=== PATIENT | female | born 1975 | race Caucasian/White ===

== ENCOUNTER 2024-09-17 23:07 | Inpatient (IN) | payer MEDICAID, OTHER ==
[~2024-09-17] VITALS: Ht 162.6 cm; Wt 77.0 kg
[2024-09-18] MEDS: acetaminophen 325mg tablet PO ONE (01:03)
[2024-09-18] MEDS: CefTRIAXone 2gm/D5W 50ml BAG 50 ML IV ONE (03:12)
[2024-09-18] MEDS: normal saline 1000ML IV soln IV ONE (03:12)
[2024-09-18] MEDS: azithromycin 250mg tablet PO ONE (03:12)
[2024-09-18 03:23] LABS: BASOPHILS # (AUTO) 0.1 X10'3 (0-0.2); BASOPHILS % (AUTO) 1.1 % (0-1); EOSINOPHILS # (AUTO) 0.3 X10'3 (0-0.9); EOSINOPHILS % (AUTO) 3.4 % (0-6); HEMATOCRIT 38.7 % (35.0-45.0); HEMOGLOBIN 12.6 g/dl (12.0-16.0); LYMPHOCYTES # (AUTO) 1.5 X10'3 (1.1-4.8); LYMPHOCYTES % (AUTO) 15.4 % (21-51); MEAN CORPUSCULAR HEMOGLOBIN 30.1 PG (27.0-31.0); MEAN CORPUSCULAR HGB CONC 32.6 g/dL (33.0-36.5); MEAN CORPUSCULAR VOLUME 92.3 FL (78-98); MEAN PLATELET VOLUME 8.3 FL (7.4-10.4); MONOCYTES # (AUTO) 0.9 X10'3 (0-0.9); MONOCYTES % (AUTO) 9.3 % (2-12); NEUTROPHILS # (AUTO) 6.9 X10'3 (1.8-7.7); NEUTROPHILS % (AUTO) 70.8 % (42-75); PLATELET COUNT 351 X10'3 (140-440); RED BLOOD COUNT 4.19 X10'6 (4.20-5.60); RED CELL DISTRIBUTION WIDTH 13.9 % (11.5-14.5); WHITE BLOOD COUNT 9.7 X10'3 (4.5-11.0)
[2024-09-18] MEDS: vancomycin/NS 1 GM ADD-VANTAGE 250 ML IV ONE (04:36)
[2024-09-18] MEDS ORDERED: magnesium hydroxide 30ml (MOM) UD suspension PO PRN (06:05)
[2024-09-18] MEDS ORDERED: magnesium sulf-water 2g/50mL 50 ML IV PRN (06:05)
[2024-09-18] MEDS ORDERED: morphine 2 MG/ML inj. syringe IV PRN ×2 (06:05)
[2024-09-18] MEDS ORDERED: mag hydrox/Alum hydrox/simeth 30ml oral suspension PO PRN (06:05)
[2024-09-18] MEDS ORDERED: potassium Cl 40MEQ/1/2NS 520ml 520 ML IV PRN (06:05)
[2024-09-18] MEDS ORDERED: potassium Cl 20 mEq SR tablet PO PRN ×2 (06:05)
[2024-09-18] MEDS ORDERED: HYDROmorphone inj. 0.5 MG/0.5 ML DISP.SYRIN IV PRN (06:05)
[2024-09-18] MEDS ORDERED: magnesium Cl slow-release 64mg tablet PO PRN (06:05)
[2024-09-18] MEDS ORDERED: ondansetron/PF 4mg/2ml inj IV PRN (06:05)
[2024-09-18] MEDS ORDERED: magnesium sulf-water 4G/100mL 100 ML IV PRN (06:05)
[2024-09-18] MEDS ORDERED: acetaminophen 325mg tablet PO PRN (06:05)
[2024-09-18] MEDS ORDERED: rabies vaccine (PCEC)/PF 2.5 unit kit IMVAC ONE (06:15)
[2024-09-18 06:48] LABS: ALANINE AMINOTRANSFERASE 14 U/L (12-78); ALBUMIN 2.7 G/DL (3.4-5.0); ALBUMIN/GLOBULIN RATIO 0.8 (1.1-1.5); ALKALINE PHOSPHATASE 122 IU/L (46-116); ANION GAP 7 (8-16); ASPARTATE AMINO TRANSFERASE 10 U/L (10-37); BILIRUBIN,TOTAL 0.3 MG/DL (0.1-1.0); BLOOD UREA NITROGEN 22 MG/DL (7-18); BUN/CREATININE RATIO 33.8 (10.0-20.0); CALCIUM 7.8 MG/DL (8.5-10.1); CHLORIDE 110 MMOL/L (99-107); CREATININE 0.65 MG/DL (0.40-0.90); GLUCOSE 98 MG/DL (70-104); POTASSIUM 4.1 MMOL/L (3.5-5.1); SODIUM 143 MMOL/L (135-145); TOTAL CARBON DIOXIDE 25.6 MMOL/L (24-32); TOTAL PROTEIN 6.2 G/DL (6.4-8.2); eCRCL 89 ML/MIN; eGFR > 90 ML/MIN
[2024-09-18 06:49] LABS: BILIRUBIN,DIRECT 0.1 MG/DL (0-0.3); C-REACTIVE PROTEIN 0.14 MG/DL (0.0-0.5); MAGNESIUM 1.6 MG/DL (1.5-2.4)
[2024-09-18] MEDS: normal saline 1000ml 1,000 ML IV SCH (07:04)
[2024-09-18] MEDS: rabies immune globulin/PF 150 unit/ml inj IMVAC STA (07:10)
[2024-09-18] MEDS: K and/or MAG REPLACEMENT MC SCH (08:00)
[2024-09-18 08:55] LABS: SYPHILIS SCREENING TEST POC NEGATIVE (Negative)
[2024-09-18] MEDS: CefTRIAXone/D5W-Rocephin 1gm 50 ML IV SCH (11:13)
[2024-09-18] MEDS: clindamycin 300mg/D5W 50mL 50 ML IV SCH (11:19)
[2024-09-18] MEDS: heparin, porcine 5000 units/ml vial SQ SCH (11:19)
[2024-09-18] MEDS: docusate sod 100mg capsule PO SCH (11:19)
[2024-09-18 14:22] LABS: URINE HCG NEGATIVE (NEG)
[2024-09-18 15:11] VITALS: RESP 14
[2024-09-18] MEDS ORDERED: iohexol 300mg/ml 100ml inj. ONE (15:25)
[2024-09-18] MEDS ORDERED: NO HOME MEDS (15:30)
[2024-09-18 18:00] VITALS: BP 92/49; PULSE 73; RESP 15; TEMP 96.6; O2SAT 100
[2024-09-18 20:00] VITALS: RESP 15; O2SAT 100
[2024-09-18] MEDS: vancomycin/NS 1 GM ADD-VANTAGE 250 ML IV SCH (20:08)
[2024-09-18 22:00] VITALS: BP 103/63; PULSE 64; RESP 16; TEMP 98.4; O2SAT 98
[2024-09-19] VITALS (7 sets, daily range): BP systolic 99–108; BP diastolic 45–63; PULSE 54–75; RESP 16–18; TEMP 97.8–98.9; O2SAT 97–99
[2024-09-19 05:48] LABS: BASOPHILS % (AUTO) 0.7 % (0-1); EOSINOPHILS # (AUTO) 0.2 X10'3 (0-0.9); EOSINOPHILS % (AUTO) 3.5 % (0-6); HEMATOCRIT 37.1 % (35.0-45.0); HEMOGLOBIN 12.3 g/dl (12.0-16.0); LYMPHOCYTES # (AUTO) 1.8 X10'3 (1.1-4.8); LYMPHOCYTES % (AUTO) 27.7 % (21-51); MEAN CORPUSCULAR HEMOGLOBIN 30.7 PG (27.0-31.0); MEAN CORPUSCULAR HGB CONC 33.1 g/dL (33.0-36.5); MEAN CORPUSCULAR VOLUME 92.5 FL (78-98); MEAN PLATELET VOLUME 8.3 FL (7.4-10.4); MONOCYTES # (AUTO) 0.6 X10'3 (0-0.9); MONOCYTES % (AUTO) 9.4 % (2-12); NEUTROPHILS # (AUTO) 3.7 X10'3 (1.8-7.7); NEUTROPHILS % (AUTO) 58.7 % (42-75); PLATELET COUNT 311 X10'3 (140-440); RED BLOOD COUNT 4.01 X10'6 (4.20-5.60); RED CELL DISTRIBUTION WIDTH 13.4 % (11.5-14.5); WHITE BLOOD COUNT 6.4 X10'3 (4.5-11.0)
[2024-09-19 05:52] LABS: ALANINE AMINOTRANSFERASE 15 U/L (12-78); ALBUMIN 2.8 G/DL (3.4-5.0); ALBUMIN/GLOBULIN RATIO 0.8 (1.1-1.5); ALKALINE PHOSPHATASE 84 IU/L (46-116); ANION GAP 5 (8-16); ASPARTATE AMINO TRANSFERASE 14 U/L (10-37); BILIRUBIN,TOTAL 0.6 MG/DL (0.1-1.0); BLOOD UREA NITROGEN 10 MG/DL (7-18); BUN/CREATININE RATIO 14.9 (10.0-20.0); CALCIUM 8.2 MG/DL (8.5-10.1); CHLORIDE 107 MMOL/L (99-107); CREATININE 0.67 MG/DL (0.40-0.90); GLUCOSE 90 MG/DL (70-104); MAGNESIUM 1.7 MG/DL (1.5-2.4); POTASSIUM 3.9 MMOL/L (3.5-5.1); SODIUM 142 MMOL/L (135-145); TOTAL CARBON DIOXIDE 30.4 MMOL/L (24-32); TOTAL PROTEIN 6.4 G/DL (6.4-8.2); eCRCL 87 ML/MIN; eGFR > 90 ML/MIN
[2024-09-19] MEDS ORDERED: VANCOMYCIN LEVEL IV ONE (12:30)
[2024-09-19] MEDS: FLU VACC TS2024-25(6MOS UP)/PF 45 MCG/0.5 ML SYRINGE IMVAC ONE (14:55)
[2024-09-20 06:03] LABS: BASOPHILS % (AUTO) 0.5 % (0-1); EOSINOPHILS # (AUTO) 0.2 X10'3 (0-0.9); EOSINOPHILS % (AUTO) 2.7 % (0-6); HEMATOCRIT 35.4 % (35.0-45.0); HEMOGLOBIN 11.6 g/dl (12.0-16.0); LYMPHOCYTES # (AUTO) 1.4 X10'3 (1.1-4.8); LYMPHOCYTES % (AUTO) 19.3 % (21-51); MEAN CORPUSCULAR HEMOGLOBIN 30.1 PG (27.0-31.0); MEAN CORPUSCULAR HGB CONC 32.8 g/dL (33.0-36.5); MEAN CORPUSCULAR VOLUME 91.9 FL (78-98); MEAN PLATELET VOLUME 8.3 FL (7.4-10.4); MONOCYTES # (AUTO) 0.7 X10'3 (0-0.9); MONOCYTES % (AUTO) 9.1 % (2-12); NEUTROPHILS % (AUTO) 68.4 % (42-75); PLATELET COUNT 282 X10'3 (140-440); RED BLOOD COUNT 3.85 X10'6 (4.20-5.60); RED CELL DISTRIBUTION WIDTH 13.7 % (11.5-14.5); WHITE BLOOD COUNT 7.4 X10'3 (4.5-11.0)
[2024-09-20 06:22] LABS: ALANINE AMINOTRANSFERASE 14 U/L (12-78); ALBUMIN 2.6 G/DL (3.4-5.0); ALBUMIN/GLOBULIN RATIO 0.8 (1.1-1.5); ALKALINE PHOSPHATASE 75 IU/L (46-116); ANION GAP 6 (8-16); ASPARTATE AMINO TRANSFERASE 13 U/L (10-37); BILIRUBIN,TOTAL 0.5 MG/DL (0.1-1.0); BLOOD UREA NITROGEN 12 MG/DL (7-18); BUN/CREATININE RATIO 18.2 (10.0-20.0); CALCIUM 8.3 MG/DL (8.5-10.1); CHLORIDE 108 MMOL/L (99-107); CREATININE 0.66 MG/DL (0.40-0.90); GLUCOSE 89 MG/DL (70-104); MAGNESIUM 1.7 MG/DL (1.5-2.4); SODIUM 141 MMOL/L (135-145); TOTAL CARBON DIOXIDE 27.2 MMOL/L (24-32); eCRCL 88 ML/MIN; eGFR > 90 ML/MIN
[2024-09-20 06:30] VITALS: BP 107/62; PULSE 58; RESP 16; TEMP 97.9; O2SAT 98
[2024-09-20 08:00] VITALS: RESP 16
[2024-09-20] MEDS ORDERED: PANT40TA54 PO (11:03)
[2024-09-20] MEDS ORDERED: DOXY-224 PO (11:03)
[2024-09-20] MEDS ORDERED: AMOX-580 PO (11:03)
[2024-09-20 11:36] VITALS: RESP 16; O2SAT 98
[2024-09-20 14:00] VITALS: BP 121/71
[2024-09-20] MEDS ORDERED: amox tr/potassium clavulanate 875/125mg TAB PO SCH (17:30)
[2024-09-20] MEDS ORDERED: DOXYCYCLINE 100MG CAPSULE PO SCH (17:30)
[2024-09-21 05:15] LABS: CHLAMYDIA TRACHOMATIS, NAA Negative (Negative)
== END 2024-09-20 15:35 | disposition home or self-care (01) | DRG 603 ==
LOC: ER 23:08 → ED HOLD 09-18 03:56 → EDBEDREQ 09-18 06:43 → SUR 3N 09-18 07:41
PROVIDERS: ADMIT Internal Medicine Critical Care Medicine; ATTEND Nurse Practitioner Family
PROC: BQ2R1ZZ Computerized Tomography (CT Scan) of Right Lower Extremity using Low Osmolar Contrast (ICD-10-PCS; principal; 2024-09-18)
DX: L03.115 Cellulitis of right lower limb (principal); S81.851D Open bite, right lower leg, subsequent encounter; W54.0XXD Bitten by dog, subsequent encounter; Z83.3 Family history of diabetes mellitus; Z87.59 Personal history of other complications of pregnancy, childbirth and the puerperium; Z98.51 Tubal ligation status
CPT/HCPCS: 36415; 71045; 73701; 80048; 80053; 80076; 81025; 83605; 83735; 84145; 85025; 85651; 86140; 87040; 87081; 87491; 90376; 90471; 90686; 93005; 96365; 96367; 99285; A6258; A6446; A6449; G0378; J0696; J1644; J3370; J3490; J7030; Q9967

== ENCOUNTER 2024-12-06 23:28 | Emergency (ER) | payer MEDICAID, OTHER ==
[~2024-12-06] VITALS: Ht 162.6 cm; Wt 90.9 kg
[~2024-12-06 23:28] MED LIST: AMOX-580 PO; DOXY-224 PO; NO HOME MEDS; PANT40TA54 PO
[2024-12-06 23:39] VITALS: BP 128/65; PULSE 72; RESP 16; TEMP 98.1; O2SAT 98
--- NOTE | 2024-12-06 23:50 | Physician Documentation ---
History of Present Illness ~ Chief Complaint: Wound Re-Check Stated Complaint: "INFECTION FROM DOG BIT" Time Seen by MD: 00:01 Primary Medical Doctor: Dr Husain HPI Patient presents today for evaluation of a chronic right lower extremity wound that began as a result of a dog bite. She got bitten by a dog on September 18, almost three months ago, took antibiotics. She states that the wounds never completely healed. They has been gradually getting worse. She has not sought medical attention prior to that. No particular palliating or aggravating factors were elicited with the patient. She brought her brother today to the hospital and decided to check in and seek medical attention as well, hence the reason for today's visit. Does report some pain, did home based wound care only. Denies any fever, chills, denies any other symptoms. Denies any concerns for tobacco, alcohol or illicit substances use Tetanus within 5 years?: No Medication Reconciliation Allergies: Coded Allergies: No Known Allergies (Unverified , 09/17/24) Scheduled Amox Tr/Potassium Clavulanate 875/125 MG (Augmentin 875/125 MG), 1 TAB PO Q12H Doxycycline Hyclate (Doxycycline Hyclate), 100 MG PO Q12H Pantoprazole Sodium (Pantoprazole Sodium), 40 MG PO DAILY Miscellaneous Medications Home Med List (No Home Medications), (Reported) Past Medical History Past Medical History: No Pertinent History Past Surgical History: tubal ligation Patient History: FH: diabetes mellitus FATHER No Family History of: FH: cancer Drug Use: none Lives In: Home Review of Systems ROS 10 point review of systems was performed and unless noted above in HPI is negative for acute process/complaint. Physical Exam Vital Signs: Temperature: 98.1, Heart Rate: 72, Respiratory Rate: 16, BP: 128/65, Pulse Oximetry: 98, Weight: 90.910 Oxygen Flow Rate: 0 Physical Exam Physical examination: GENERAL: Awake, alert, oriented, GCS 15, no apparent distress, non-toxic appearing, answers questions, follows commands appropriately. HEENT: Atraumatic, normocephalic, pupils equal, extraocular muscles intact Active gross movements, sclerae anicteric, mucus membranes moist, no stridor. NECK: Midline, no JVD CARDIOVASCULAR: Good skin perfusion without evidence of pallor, mottling. PULMONARY: Nonlabored, symmetric chest rise, no audible wheezing, no accessory muscle use, no respiratory distress, speaking in full sentences. GASTROINTESTINAL: Not distended. NEUROLOGIC: Lucid with normal mental status. Normal facial symmetry. Moves all extremities symmetrically and with purpose. No truncal ataxia. Speech is fluid without evidence of dysarthria or aphasia, no focal deficits appreciated. EXTREMITIES: Acute deformities Skin: warm, dry PSYCHIATRIC: Normal affect, normal insight, normal concentration. Focused exam: [] Right lower extremity has approximately 10 x 20 cm area of erythema, calor, with some chronic appearing wounds. No active bleeding or purulent discharge. No abscesses. Progress Results/Orders Results/Orders Vital Signs 12/06/24 23:39 Temp 98.1 Pulse 72 Resp 16 B/P (MAP) 128/65 Pulse Ox 98 O2 Flow Rate 0 Medical Decision Making Findings Facility Status: ED Holds, E process The plan was discussed with the patient, who demonstrates clear understanding of the plan and is in agreement with the plan unless otherwise noted in the chart. All questions have been answered, all concerns were addressed unless otherwise documented. I was available throughout their ED stay for frequent reassessment and questions. Differential Diagnoses (considered and possible or likely): [Cellulitis, less likely cellulitis secondary to the dog bite, less likely abscess, clinically not consistent with necrotizing fasciitis, chronic venous stasis ulcer had also been considered with a without superimposed infection] ??Differential Diagnoses (considered and unlikely, not requiring evaluation currently): [Neurovascular baseline and intact] MDM Data Please see [facility] for the following: Independent Historians and external Records Review. Historian: [Patient] Independent Historians: ?[Record review] Medication Management: [Reviewed medication list] Social History and determinants: [Reviewed] Please see the body of the note for the following: Any independent interpretations of ECG, imaging studies. All vitals signs/haemodynamics, ordered tests were independently reviewed and interpreted by myself. Nursing triage complaint and vitals reviewed, additional nursing notes were reviewed as available and I agree unless otherwise noted or documented in contradiction in the chart Vital Signs: Independently reviewed Labs: Independently interpreted Imaging: Independently interpreted Old Medical Records: Independently reviewed, see [facility] for relevant summary and information Pulse Oximetry: [99%] interpreted as [normal on room air] by me Additionally notably showing: [Hemodynamically stable] Tests considered but not ordered include: [Hematologic workup and imaging has been considered but does not appear to be necessary given clinical nature of diagnosis] Social Determinants of Health Impact: Patient was evaluated in [facility], or [facility] [place] to healthcare due to below par ratio of patient to medical providers. [] Comorbid Conditions Impacting Present Evaluation and Care/Treatment: [None reported with the patient] Management Discussions with other Healthcare Providers: [None] Treatment and Disposition Medication Management (Given or considered): [1st dose of antibiotics]. See EMR for details Consideration for Hospitalization/Escalation/Deescalation of Care: Admission for observation has been considered, [however the patient is able to tolerate p.o., their symptoms are controlled, they are able to rely on oral medications, and their chief complaint/diagnosis can be managed on outpatient basis.] ?ED Course:?[I do not think this represents a dog bite related infection, but rather needs to be treat it as a regular cellulitis with a without MRSA. We will initiate is beta lactams with a potential reassessment of the transitioned to Bactrim if no improvement] ?Shared decision making:?[Patient is hemodynamically stable for discharge home with follow with their primary care provider. [ ] Specific and cautious return precautions provided and discussed with full understanding. Any incidental findings were also discussed and follow up recommendations given. [] All questions answered. Patient/family were able to verbalize back return precautions. Patient/family agree to plan. Copies of imaging and laboratory studies were provided.] Code status:?FULL Please see the full Electronic Medical Record for full details of nursing documentation, medications list, other records of complete past medical history and conditions, vital signs, laboratory studies, and any radiologic study interpretations by radiologists. Portions of this note were completed using [employer] dictation software and as a result there may exist minor errors in spelling. I have reviewed elements of past family and social history and agree as included in note. Departure Disposition: HOME / SELF CARE / HOMELESS (So my last person that an) Impression: Primary Impression: Cellulitis of right leg without foot Condition: Improved Referrals: NO PRIMARY CARE PROVIDER (PCP) Prescriptions Amox Tr/Potassium Clavulanate (Augmentin 875-125 Tablet) 1 Each Tablet 1 TAB PO Q12H for 10 Days, #20 TAB Prov: LANI RODRIGUEZ DO 12/07/24 Education Educated: Patient Educated regarding: diagnosis, treatment, prognosis, need for follow up Additional Comment Medical Screen Exam History: This 49-year-old female presents for wound recheck of a dog bite she received to her lower right cesar in August, patient reports it is healing poorly, patient reports she was seen by outpatient wound care however she reports they told her it was healing well and gave her home care instructions though one of the times while doing a bandage change she rib some of the skin off and it is healing poorly now. Patient additionally reports two new wounds to her right upper calf Exam: VITALS: Reviewed and as above. GENERAL: Alert, nontoxic appearing, no apparent distress. RESPIRATORY: No increased work of breathing, no respiratory distress, speaking in full clear sentences SKIN: Dressed wound to the anterior surface of right lower cesar, dressing unable to be removed due to adherence to wound. Two 1 cm open wounds to upper lateral thigh MSE performed in triage and patient returned to ED lobby by nursing staff The note accurately reflects work and decisions made by me.SOURAV Sibley 12/06/24 23:50 Signature Scribe Signature: No scribe Attestation: This note accurately reflects clinical decisions, work performed by myself, DO SANDRA Hines PAUL W FNP Dec 06, 2024 23:50 LANI RODRIGUEZ DO Dec 07, 2024 00:26
[2024-12-07] MEDS ORDERED: AMOX-117 PO (00:25)
[2024-12-07] MEDS: amox tr/potassium clavulanate 875/125mg TAB PO ONE (01:16)
== END 2024-12-07 01:18 | disposition home or self-care (01) ==
LOC: ER 23:29
DX: L03.115 Cellulitis of right lower limb (principal); Z98.51 Tubal ligation status
CPT/HCPCS: 99283; J7040; A6258; A6402